=== PATIENT | female | born 1930 | race Caucasian/White ===

== ENCOUNTER 2017-02-27 12:21 | Inpatient (IN) | payer MEDICARE, OTHER ==
[~2017-02-27] VITALS: Ht 147.3 cm; Wt 59.8 kg
[~2017-02-27 12:21] MED LIST: AMIO200T7 PO; AMLO5TAB2 PO; ASPI-515 PO; CHOL5000 PO; CYAN50004 PO; ENAL10TA PO; FOLI-17 PO; LEVO88TA4 PO; MECL25TA2 PO; POTA10CA PO; SIMV20TA3 PO
[2017-02-27] MEDS ORDERED: SODIUM CHLORIDE FLUSH 10ML SYR IVF ONE (12:30)
[2017-02-27] MEDS ORDERED: PLEASE ENTER HEIGHT AND WEIGHT MC SCH (12:44)
[2017-02-27 13:01] LABS: HEMATOCRIT 43.3 % (34.6-47.8); HEMOGLOBIN 14.2 g/dL (11.7-16.4); WHITE BLOOD COUNT 5.3 x10^3/uL (3.4-10)
[2017-02-27 13:15] LABS: BLOOD UREA NITROGEN 24 mg/dL (7-18)
[2017-02-27 13:22] LABS: IS PT STATUS REG ER OR PRE ER? YES
[2017-02-27] MEDS ORDERED: HYDROcodone/APAP 5/325 TABLET PO PRN (18:00)
[2017-02-27] MEDS ORDERED: ACETAMINOPHEN 325 MG TABLET PO PRN (18:00)
[2017-02-27] MEDS ORDERED: POLYETHYLENE GLYCOL 17 GM PACKET PO PRN (18:00)
[2017-02-27] MEDS ORDERED: DOCUSATE 100 MG CAPSULE PO PRN (18:00)
[2017-02-27] MEDS ORDERED: BISACODYL 10 MG SUPP PR PRN (18:00)
[2017-02-27 21:48] VITALS: BP 138/74
[2017-02-27] MEDS: HEPARIN 5,000 UNITS/ML, 1ML SQ SCH (22:27)
[2017-02-28 01:53] LABS: PATH.CAST-FLAG NOT PRESENT; SPERM-FLAG NOT PRESENT; SRC-FLAG NOT PRESENT; XTAL-FLAG NOT PRESENT; YLC-FLAG NOT PRESENT
[2017-02-28 02:18] VITALS: BP 117/68
[2017-02-28 05:34] LABS: HEMOGLOBIN 13.3 g/dL (11.7-16.4); WHITE BLOOD COUNT 6.2 x10^3/uL (3.4-10)
[2017-02-28 05:48] LABS: BLOOD UREA NITROGEN 22 mg/dL (7-18)
[2017-02-28 06:00] LABS: ASPARTATE AMINO TRANSFERASE 21 U/L (15-37)
[2017-02-28] MEDS: HEPARIN 5,000 UNITS/ML, 1ML SQ SCH ×3 (06:42→22:30)
[2017-02-28] MEDS: SODIUM CHLORIDE 0.9% 1,000 ML IV SCH ×3 (07:27→23:42)
[2017-02-28] MEDS ORDERED: CEFAZOLIN PMX 1GM/50ML 50 ML IVPB ONE (07:30)
[2017-02-28 08:00] VITALS: BP 128/70
[2017-02-28 13:41] VITALS: BP 110/69
[2017-02-28] MEDS ORDERED: POTASSIUM CHLORIDE 20 MEQ TAB.ER.PRT PO ONE (14:00)
[2017-02-28 20:15] VITALS: BP 138/77
[2017-02-28] MEDS: SIMVASTATIN 20 MG TABLET PO SCH (21:23)
[2017-03-01 01:21] VITALS: BP 113/68
[2017-03-01 05:23] LABS: BLOOD UREA NITROGEN 21 mg/dL (7-18)
[2017-03-01] MEDS: LEVOTHYROXINE 88 MCG TABLET PO SCH (06:01)
[2017-03-01 08:08] VITALS: BP 117/67
[2017-03-01] MEDS: SODIUM CHLORIDE 0.9% 1,000 ML IV SCH ×2 (08:15→18:00)
[2017-03-01] MEDS ORDERED: CEFAZOLIN PMX 1GM/50ML 50 ML ONE (13:20)
[2017-03-01] MEDS ORDERED: LIDOCAINE 2%, 20ML ONE (13:20)
[2017-03-01] MEDS ORDERED: MIDAZOLAM 1 MG/ML, 5ML ONE (13:20)
[2017-03-01] MEDS ORDERED: CEFAZOLIN 1,000 MG ONE (13:20)
[2017-03-01] MEDS ORDERED: FENTANYL PF 100 MCG/2ML ONE (13:20)
[2017-03-01 15:35] VITALS: BP 108/59
[2017-03-01 20:02] VITALS: BP 133/65
[2017-03-01] MEDS: CEFAZOLIN PMX 1GM/50ML 50 ML IVPB SCH (21:18)
[2017-03-01] MEDS: SIMVASTATIN 20 MG TABLET PO SCH (21:19)
[2017-03-02 01:14] VITALS: BP 145/77
[2017-03-02] MEDS: CEFAZOLIN PMX 1GM/50ML 50 ML IVPB SCH ×2 (05:05→12:31)
[2017-03-02] MEDS: LEVOTHYROXINE 88 MCG TABLET PO SCH (05:05)
[2017-03-02 06:42] VITALS: BP 115/72
[2017-03-02] MEDS ORDERED: AMIODARONE 200 MG TABLET PO SCH (09:30)
[2017-03-02] MEDS ORDERED: AMIO200T42 PO (13:47)
== END 2017-03-02 14:00 | disposition home or self-care (01) | DRG 243 ==
LOC: ED 14:15 → EDIP 14:42 → 5SO 19:45 → DCLOUNGE 03-02 13:40
PROVIDERS: ADMIT Internal Medicine; ATTEND Internal Medicine
PROC: 0JH606Z Insertion of Pacemaker, Dual Chamber into Chest Subcutaneous Tissue and Fascia, Open Approach (ICD-10-PCS; principal; 2017-03-01)
PROC: 02HK3JZ Insertion of Pacemaker Lead into Right Ventricle, Percutaneous Approach (ICD-10-PCS; 2017-03-01)
PROC: 02H63JZ Insertion of Pacemaker Lead into Right Atrium, Percutaneous Approach (ICD-10-PCS; 2017-03-01)
DX: I49.5 Sick sinus syndrome (principal); D68.69 Other thrombophilia; N18.3 Chronic kidney disease, stage 3 (moderate); I69.30 Unspecified sequelae of cerebral infarction; I48.0 Paroxysmal atrial fibrillation; E03.9 Hypothyroidism, unspecified; E78.5 Hyperlipidemia, unspecified; I12.9 Hypertensive chronic kidney disease with stage 1 through stage 4 chronic kidney disease, or unspecified chronic kidney disease; I25.10 Atherosclerotic heart disease of native coronary artery without angina pectoris; Z66 Do not resuscitate; Z82.3 Family history of stroke; Z95.1 Presence of aortocoronary bypass graft; Z82.49 Family history of ischemic heart disease and other diseases of the circulatory system; Z83.3 Family history of diabetes mellitus; Z85.3 Personal history of malignant neoplasm of breast; Z79.01 Long term (current) use of anticoagulants; Z87.891 Personal history of nicotine dependence; Z90.49 Acquired absence of other specified parts of digestive tract
CPT/HCPCS: 33208; 36415; 71010; 80048; 80053; 81001; 82040; 83735; 84100; 84443; 84484; 85025; 85610; 85730; 87086; 93005; 99156; 99157; 99291; C1779; C1785; C1892; J0690; J1644; J2250; J3010; J3490; J7030

== ENCOUNTER 2017-08-13 12:25 | Emergency (ER) | payer MEDICARE, OTHER ==
[~2017-08-13] VITALS: Ht 147.3 cm; Wt 55.0 kg
[~2017-08-13 12:25] MED LIST changes: +AMIO200T42 PO
[2017-08-13] MEDS ORDERED: ENAL10TA PO (12:37)
[2017-08-13] MEDS ORDERED: AMLO5TAB2 PO (12:37)
[2017-08-13] MEDS ORDERED: MECL25TA4 PO (12:37)
[2017-08-13] MEDS ORDERED: FOLI-17 PO (12:37)
[2017-08-13] MEDS ORDERED: AMIO200T7 PO (12:37)
[2017-08-13] MEDS ORDERED: CYAN2500 PO (12:37)
[2017-08-13] MEDS ORDERED: FURO20TA3 PO (12:37)
[2017-08-13] MEDS ORDERED: MULT-309 PO (12:38)
[2017-08-13] MEDS ORDERED: POTA10TA6 PO (12:38)
[2017-08-13] MEDS ORDERED: MONT10TA9 PO (12:38)
[2017-08-13] MEDS ORDERED: CHOL200074 PO (12:38)
[2017-08-13] MEDS ORDERED: LEVO88TA4 PO (12:38)
[2017-08-13] MEDS ORDERED: ATOR40TA PO (12:38)
[2017-08-13] MEDS ORDERED: ENALAPRILAT 1.25 MG/ML, 2ML IV ONE (14:00)
[2017-08-13 14:04] LABS: BASOPHILS # (AUTO) 0.05 x10^3/uL (0-0.1); BASOPHILS % (AUTO) 1 % (0-1); EOSINOPHILS % (AUTO) 1 % (1-7); LYMPHOCYTES # (AUTO) 1.17 x10^3/uL (1-3.4); LYMPHOCYTES % (AUTO) 16 % (22-44); MD NO; MEAN CORPUSCULAR HEMOGLOBIN 33.9 pg (27.0-34.8); MEAN CORPUSCULAR HGB CONC 33.4 g/dL (32.4-35.8); MEAN CORPUSCULAR VOLUME 101.5 fL (80-100); MEAN PLATELET VOLUME 8.3 fL (7.4-10.4); MONOCYTES # (AUTO) 0.52 x10^3/uL (0.2-0.8); MONOCYTES % (AUTO) 7 % (2-9); NEUTROPHILS # (AUTO) 5.55 x10^3/uL (1.8-6.8); NEUTROPHILS % (AUTO) 75 % (42-75); PLATELET COUNT 247 x10^3/uL (130-400); RED BLOOD COUNT 4.42 x10^6/uL (3.82-5.3); RED CELL DISTRIBUTION WIDTH 16.5 % (9.6-15.2)
[2017-08-13] MEDS ORDERED: ENALAPRILAT 1.25 MG/ML, 2ML ONE (14:04)
[2017-08-13 14:12] LABS: INTERNATIONAL NORMALIZED RATIO 1.01 (0.93-1.1); PROTHROMBIN TIME 10.5 Seconds (9.6-11.5)
[2017-08-13 14:24] LABS: ALBUMIN 3.5 g/dL (3.4-5.0); ANION GAP 7 mmol/L (5-15); CALCIUM 8.8 mg/dL (8.5-10.1); CHLORIDE 106 mmol/L (98-107); CREATININE 1.52 mg/dL (0.55-1.02)
[2017-08-13 14:27] LABS: TROPONIN I < 0.015 ng/mL (0.000-0.045)
[2017-08-13] MEDS ORDERED: METOPROLOL 1 MG/ML, 5ML ONE (15:26)
[2017-08-13] MEDS ORDERED: METOPROLOL 1 MG/ML, 5ML IVPush ONE ×2 (15:30)
[2017-08-13 17:13] VITALS: BP 193/63
== END 2017-08-13 17:31 | disposition home or self-care (01) ==
LOC: ED 14:58
DX: I12.9 Hypertensive chronic kidney disease with stage 1 through stage 4 chronic kidney disease, or unspecified chronic kidney disease (principal); N18.3 Chronic kidney disease, stage 3 (moderate); E03.9 Hypothyroidism, unspecified; E78.5 Hyperlipidemia, unspecified; I48.91 Unspecified atrial fibrillation; Z86.73 Personal history of transient ischemic attack (TIA), and cerebral infarction without residual deficits; Z85.3 Personal history of malignant neoplasm of breast; Z90.49 Acquired absence of other specified parts of digestive tract
CPT/HCPCS: 36415; 71045; 80048; 82040; 84484; 85025; 85610; 85730; 93005; 96374; 96375

== ENCOUNTER → 2018-01-09 | Outpatient (CLI) | payer MEDICARE, OTHER ==
[~2018-01-09] MED LIST changes: +ALPR0.257 SL; +APIX2.5T PO; +ASPI-496 PO; +ATOR40TA PO; +CHOL200074 PO; +CYAN2500 PO; +FURO20TA3 PO; +MECL25TA4 PO; +METO25TA2 PO; +MONT10TA9 PO; +MULT-309 PO; +POLY17PO5 PO; +POTA10TA11 PO; +POTA10TA6 PO
== END | disposition home or self-care (01) ==
LOC: RAD 14:31
PROVIDERS: ATTEND Internal Medicine Nephrology
DX: R60.0 Localized edema (principal); E78.5 Hyperlipidemia, unspecified; I25.10 Atherosclerotic heart disease of native coronary artery without angina pectoris; I12.9 Hypertensive chronic kidney disease with stage 1 through stage 4 chronic kidney disease, or unspecified chronic kidney disease; N18.3 Chronic kidney disease, stage 3 (moderate); Z79.899 Other long term (current) drug therapy
CPT/HCPCS: 93970